=== PATIENT | female | born 1945 ===

== ENCOUNTER 2021-07-18 05:35 | Day surgery (SDC) | payer OTHER ==
[~2021-07-18 05:35] MED LIST: ADULT LOW DOSE81 M1 PO; VERAPAMIL PO
== END 2021-07-18 10:30 | disposition home or self-care (01) ==
LOC: CIR.AMB 05:35
PROVIDERS: ATTEND Orthopaedic Surgery Hand Surgery
DX: G56.02 Carpal tunnel syndrome, left upper limb (principal); I10 Essential (primary) hypertension; I35.0 Nonrheumatic aortic (valve) stenosis; J45.909 Unspecified asthma, uncomplicated; F12.90 Cannabis use, unspecified, uncomplicated; K21.9 Gastro-esophageal reflux disease without esophagitis; J32.8 Other chronic sinusitis; Z79.82 Long term (current) use of aspirin

== ENCOUNTER 2023-03-22 09:32 | Outpatient (CLI) | payer OTHER ==
[2023-03-22 11:10] LABS: HEMATOCRIT 36.5 % (36.0-45.00); HEMOGLOBIN 12.3 g/dL (12.0-15.00); MEAN CELL VOLUME 83.7 fL (80.00-100.00); MEAN CORPUSCULAR HEMOGLOBIN 28.1 pg (27.00-32.0); MEAN CORPUSCULAR HGB CONC 33.6 g/dl (32.0-36.0); PLATELET COUNT 225 K/uL (150-450); RED BLOOD COUNT 4.36 M/uL (4.00-6.00); RED CELL DISTRIBUTION WIDTH 14.6 % (11.5-14.5)
[2023-03-22 11:18] LABS: PH,URINE 6.5 (5.0-8.0); URINE APPEARANCE Clear; URINE BILIRRUBIN Negative (NEGATIVE); URINE BLOOD Negative; URINE COLOR Yellow; URINE GLUCOSE Negative (NEGATIVE); URINE LEUKOCYTE Negative; URINE NITRATE Negative; URINE PROTEIN Negative (NEGATIVE); URINE UROBILINOGEN 0.2 E.U./dl
[2023-03-22 11:22] LABS: URINE BACTERIA 31.4 uL (0.0-1933); URINE RBC 2.4 uL (0.0-20.8)
[2023-03-22 11:35] LABS: URINE EPITHELIAL CELLS 1.3 uL (0.0-38.8)
[2023-03-22 11:43] LABS: ALBUMIN 3.9 gm/dL (3.4-5.0); BILIRUBIN TOTAL 0.47 mg/dL (0.3-1.2); CALCIUM 9.8 mg/dL (8.5-10.1); CREATININE SERUM 0.86 mg/dL (0.55-1.02); GFR 63.65; GLOBULINA 3.9 G/DL (2.4-3.5); POTASSIUM 3.95 mEq/L (3.5-5.1); PROTHROMBIN TIME 10.5 SECONDS (9.0-11.5); TOTAL PROTEIN 7.8 gm/dL (6.4-8.2)
== END 2023-03-22 13:26 | disposition home or self-care (01) ==
LOC: LAB 09:32
PROVIDERS: ATTEND Orthopaedic Surgery Hand Surgery
DX: Z01.810 Encounter for preprocedural cardiovascular examination (principal); E11.9 Type 2 diabetes mellitus without complications; E78.00 Pure hypercholesterolemia, unspecified; E78.3 Hyperchylomicronemia; D65 Disseminated intravascular coagulation [defibrination syndrome]; D66 Hereditary factor VIII deficiency; N39.0 Urinary tract infection, site not specified

== ENCOUNTER 2023-03-26 07:12 | Day surgery (SDC) | payer OTHER | END 2023-03-26 12:40 | disposition home or self-care (01) | LOC: CIR.AMB 07:12 | PROVIDERS: ATTEND Orthopaedic Surgery Hand Surgery | DX: G56.01 Carpal tunnel syndrome, right upper limb (principal); Z20.822 Contact with and (suspected) exposure to COVID-19; I10 Essential (primary) hypertension ==